=== PATIENT | female | born 1955 | race Caucasian/White ===

== ENCOUNTER 2018-11-30 04:23 | Inpatient (IN) ==
--- OUTSIDE RECORDS SUMMARY | 2018-11-30 04:25 | External Medical Summary | Continuity of Care Document ---
:1955 Author Name Adis Ramirez Address Unavailable Unavailable , Care Team Providers Name Role Phone Unavailable Unavailable Unavailable SERRA Unavailable Unavailable Unavailable Unavailable Unavailable Problems Rosacea (695.3) (L71.9) Actinic keratosis (702.0) (L57.0) Nasal congestion (478.19) (R09.81) Chronic rhinitis (472.0) (J31.0) Female pelvic pain (625.9) (R10.2) Encounter for routine gynecological exam ination with Papanicolaou smear of cervix (V72.31) (Z01.419) Allergies and Adverse Reactions Biaxin TABS (Allergy) Medications Levothyroxine Sodium TABS , M.D. Refills: 0 Omeprazole 20 MG Oral Capsule Delayed Release; TAKE 1 CAPSUL E DAILY. , M.D. Start: 13-Sep-2014 Refills: 0 metroNIDAZOLE 0.75 % External Gel; APPLY AND RUB IN A THIN FILM TO AFFECTED AREAS ONCE DAILY , M.D. Start: 13-Sep-2014 Quantity: 1 45 GM Tube Refills: 2 Procedures History of Hysteroscopy With Endometrial Ablation Status: Completed History of Tubal Ligation Status: Comple neena Immunizations Immunizations not documented Social History - Smoking Status Never smoker Plan of Treatment Planned Observations Planned Goals not documented Results No Known Results Results not documented
--- NOTE | 2018-11-30 04:41 | Emergency Department Note ---
History of Present Illness General Chief complaint: GI Assessment Stated complaint: BLOODY STOOL History of Present Illness This 63-year-old presents to the ER complaining of rectal bleeding Location: Rectum Quality: Bleeding Severity: Moderate Duration: 3 days Timing: Started 3 days ago Context: Symptoms got worse and patient came back Modifying factors: better with nothing; worse with movement Patient was seen here 3 days ago and told she had hemorrhoids. Patient states every time she tries to go the bathroom she has bright red blood that comes out that has gotten progressively worse. Her stool is brown in nature. She is had some lower abdominal discomfort. Patient states this morning she woke up to go the bathroom and had copious amount of bright red blood. No clots. Patient states she feels slightly weak. She is a history of diverticulitis. No history of GI bleeding. Dr. Zelaya is her GI doctor. No recent colonoscopy. Patient denies chest pain, dyspnea, fevers, syncope, rectal pain. She is not on blood thinners. Home Medications Home Medications Medication Instructions Recorded Confirmed Type levothyroxine 50 mg PO DAILY 07/20/18 11/30/18 History omeprazole 20 mg PO DAILY 07/20/18 11/30/18 History fluticasone propionate 2 spry INTRANASAL DAILY PRN 11/27/18 11/30/18 History multivitamin 1 tab PO DAILY 11/27/18 11/30/18 History omega 2-zju-hov-fish oil [Fish Oil] 1 cap PO DAILY 11/27/18 11/30/18 History vitamin E 400 units PO DAILY 11/27/18 11/30/18 History Allergies Allergy/AdvReac Type Severity Reaction Status Date / Time clarithromycin Allergy Intermediate HIVES Verified 11/30/18 05:10 adhesive Allergy Mild ITCHING, Verified 11/30/18 05:10 REDNESS bupropion Allergy Mild ANXIETY Verified 11/30/18 05:10 penciclovir Allergy Mild COLD SORES Verified 11/30/18 05:10 venlafaxine Allergy Unknown UNKNOWN Verified 11/30/18 05:10 Past Med/Surg History Medical History Diverticulitis Social History Preferred Language: Serbian Feels Safe at Home: Yes Smoking Status: Never smoker Review of Systems All systems reviewed & are unremarkable except as noted in HPI & below Physical Exam Vital Signs Vital Signs - 24 hr 11/30/18 04:26 11/30/18 04:44 Temperature 36.6 C Temperature Source Oral Sepsis Recent Fever Within 48 Hours No Sepsis Action Taken by Nursing No Action Required Pulse Rate 77 Respiratory Rate 20 Respiratory Effort / Characteristics Non-Labored Spontaneous Respiratory Depth Normal Blood Pressure 118/76 Blood Pressure Mean 90 Blood Pressure Position Sitting Pulse Oximetry 100 100 Oxygen Delivery Method Room Air Room Air VITALS: Vitals are noted on the nurse's note and reviewed by myself. Vital signs stable. GENERAL: Pleasant female, in no acute distress, nondiaphoretic, well-developed well-nourished. SKIN: The skin was without rashes, erythema, edema, or bruising. There is no tenting of the skin. Capillary reflex less than 2 seconds. HEAD: Normocephalic atraumatic. EARS: External auditory canals clear EYES: Pupils equal round and reactive to light and accommodation. Conjunctivae without injection, sclerae without icterus. Extraocular movements intact. NOSE: Patent, turbinates without inflammation or discharge. MOUTH: Mucous membranes moist. Pharynx without erythema or exudate. Uvula midline. Airway patent. Tongue does not deviate. NECK: Supple without nuchal rigidity. No lymphadenopathy. No thyromegaly. Cervical spine is nontender. No JVD. HEART: Regular rate and rhythm without murmurs gallops or rubs. LUNGS: Clear to auscultation bilaterally without wheezes, rales or rhonchi. No retractions or accessory muscle use. ABDOMEN: Positive bowel sounds x 4. Normal tympanic percussion. Soft, tender lower abdomen, without masses or organomegaly. Veliz sign negative. No guarding or rebound tenderness. No CVA tenderness Rectal exam: Nonthrombosed hemorrhoids at 3 and 9:00, bright red blood in the vault, engineering test specialist present. No fissures or tears. MUSCULOSKELETAL: No muscle atrophy, erythema, or edema noted. NEURO: Patient was alert and oriented to person place and time. Normal sensation to light and sharp touch. No focal neurological deficits. Course Administered Medications Ioversol (Optiray 320 100ml) 100 ml IV ONCE PRN PRN Reason: Interaction Checking Stop: 12/04/18 05:17 Last Admin: 11/30/18 05:19 Dose: 94 ml Documented by: [id number] Medical Decision Making Medical Records Attestation: I reviewed the patient's medical records. Home Medications Current Medication List: was personally reviewed by me Laboratory Data Attestation: I reviewed the patient's lab results. Result diagrams: 11/30/18 04:47 11/30/18 04:47 Lab Results 11/30/18 11/30/18 11/30/18 Range/Units 04:47 04:47 04:47 WBC 6.44 (4.8-10.8) K/uL RBC 3.05 L (4.2-5.4) M/uL Hgb 9.9 L (12.0-16.0) g/dL POC Hgb (12.0-16.0) g/dl Hct 28.3 L (37-47) % POC Hct (37-47) % MCV 92.8 (80-100) fL MCH 32.5 (25-34) pg MCHC 35.0 (32-36) g/dL RDW Std Deviation 45.6 (36.4-46.3) fL RDW Coeff of Michelle 13.5 (11.5-14.5) % Plt Count 196 (130-400) K/uL MPV 9.9 (7.4-10.4) fL PT 9.8 (9.0-12.0) Seconds INR 1.0 (0.9-1.1) APTT 22.5 (21.0-31.0) Seconds PTT Ratio 0.8 POC Sodium (135-144) mEq/L Sodium 138 (136-145) mmol/L POC Potassium (3.3-5.0) mEq/L Potassium 4.3 (3.5-5.1) mmol/L POC Chloride (101-112) mEq/L Chloride 106 (98-107) mmol/L Carbon Dioxide 26 (21-32) mmol/L POC Total CO2 (24-31) mEq/l Anion Gap 7.0 (3-11) POC Anion Gap (16-25) mmol/L POC BUN (7-18) mg/dl BUN 21 H (7-18) mg/dl Creatinine 0.63 (0.6-1.2) mg/dl POC Creatinine (0.6-1.3) mg/dl Est Cr Clr Drug Dosing 91.7 ml/min Est GFR ( Amer) 109.9 Est GFR (Non-Af Amer) 94.8 BUN/Creatinine Ratio 33.9 H (10-20) Glucose 100 H (70-99) mg/dl POC Glucose (other) (70-99) mg/dl Calcium 8.4 L (8.5-10.1) mg/dl POC Ioniz Calcium Hayley (1.12-1.32) mmol/l Total Bilirubin 0.4 (0.2-1) mg/dl AST 21 (15-37) U/L ALT 33 (12-78) U/L Alkaline Phosphatase 50 (45-117) U/L Total Protein 6.5 (6.4-8.2) gm/dl Albumin 3.4 (3.4-5.0) gm/dl Globulin 3.1 (2.5-4.0) gm/dl Albumin/Globulin Ratio 1.1 (0.9-2) 11/30/18 Range/Units 04:52 WBC (4.8-10.8) K/uL RBC (4.2-5.4) M/uL Hgb (12.0-16.0) g/dL POC Hgb 9.5 L (12.0-16.0) g/dl Hct (37-47) % POC Hct 28 L (37-47) % MCV (80-100) fL MCH (25-34) pg MCHC (32-36) g/dL RDW Std Deviation (36.4-46.3) fL RDW Coeff of Michelle (11.5-14.5) % Plt Count (130-400) K/uL MPV (7.4-10.4) fL PT (9.0-12.0) Seconds INR (0.9-1.1) APTT (21.0-31.0) Seconds PTT Ratio POC Sodium 137 (135-144) mEq/L Sodium (136-145) mmol/L POC Potassium 4.2 (3.3-5.0) mEq/L Potassium (3.5-5.1) mmol/L POC Chloride 100 L (101-112) mEq/L Chloride (98-107) mmol/L Carbon Dioxide (21-32) mmol/L POC Total CO2 25 (24-31) mEq/l Anion Gap (3-11) POC Anion Gap 17.0 (16-25) mmol/L POC BUN 20 H (7-18) mg/dl BUN (7-18) mg/dl Creatinine (0.6-1.2) mg/dl POC Creatinine 0.6 (0.6-1.3) mg/dl Est Cr Clr Drug Dosing ml/min Est GFR ( Amer) Est GFR (Non-Af Amer) BUN/Creatinine Ratio (10-20) Glucose (70-99) mg/dl POC Glucose (other) 103 H (70-99) mg/dl Calcium (8.5-10.1) mg/dl POC Ioniz Calcium Hayley 1.13 (1.12-1.32) mmol/l Total Bilirubin (0.2-1) mg/dl AST (15-37) U/L ALT (12-78) U/L Alkaline Phosphatase (45-117) U/L Total Protein (6.4-8.2) gm/dl Albumin (3.4-5.0) gm/dl Globulin (2.5-4.0) gm/dl Albumin/Globulin Ratio (0.9-2) Imaging Data Attestation: I personally reviewed and interpreted this imaging study as follows: MDM Narrative Prior records/ancillary studies reviewed. Triage Nursing notes reviewed. Additional history obtained from the family. The patient's history was concerning for possible gastrointestinal bleeding. Differential diagnosis: Etiologies such as diverticulosis, AVM, coagulopathy, colitis, inflammatory bowel disease, malignancy, Cuca-Lainez tear, esophagitis, peptic ulcer disease, variceal bleed, gastritis, epistaxis, fissure, hemorrhoids, as well as others were entertained. Physical exam: As above. The patients vital signs were stable. ER treatment provided: Patient was observed On reassessment the patient felt better. Diagnostics interpreted by me: EKG: Normal sinus, normal intervals, poor baseline, no acute ST-T changes, rate of 67. Impression normal sinus rhythm interpreted by myself I think arrhythmia is unlikely. EKG shows normal sinus rhythm with no interval abnormalities such as QT prolongation or WPW. There are no findings to suggest Brugada syndrome. Cardiac monitoring in the emergency department reveals no tachycardic or bradycardic dysrhythmia. Hypertrophic cardiomyopathy was considered but there are no clear historical elements pointing toward this. EKG is not suggestive. The QRS voltage is not extremely large and there are no suggestive Q waves. The labs revealed slightly worsening anemia No leukocytosis Type and screen ordered and patient was consented to blood transfusion if needed. Paper work was placed on the chart Imaging studies: CT ABDOMEN & PELVIS With Contrast: Colonic diverticulosis without inflammation, no bowel obstruction or wall thickening Radiologist: Chuck Martinez MD Consultation: A consultation was placed with the [facility] hospitalist. The case was discussed and diagnostics were reviewed. The patient was evaluated in the ER for further treatment. This appears to be consistent with rectal bleeding. Patient's H&H has dropped slightly. She is symptomatic. Medicine was consulted. She is agreeable treatment plan of admission. No leukocytosis. No acute findings on CAT scan. Type and screen is ordered and patient was consented to transfusion if needed. By the evaluation outlined above emergent etiologies such as esophageal perforation, peptic ulcer disease, variceal bleed, coagulopathy, gastritis, epistaxis, as well as others were deemed relatively unlikely. The pt informed about the findings as listed above. All questions were answered and pleased with the treatment. Case reviewed with my attending The chart was completed utilizing [employer] Speech voice recognition software. Grammatical errors, random word insertions, pronoun errors, and incomplete sentences are an occassional consequence of this system due to software limitations, ambient noise, and hardware issues. Any formal questions or concerns about the content, text, or information contained within the body of this dictation should be directly addressed to the physician assistant store manager trainee for clarification. Impression & Plan Bright red rectal bleeding, Anemia Discharge Plan Visit Data Chief Complaint: GI Assessment Stated Complaint: BLOODY STOOL ED Provider: Parisa Tucker ED Midlevel Provider: Katherine Victoria Discharge Problem: Bright red rectal bleeding, Anemia Patient Disposition: Being Evaluated by Hospitalist Condition: Fair Forms Stand Alone Forms: My [facility] Prescriptions Prescriptions: No Action multivitamin Tablet 1 tab PO DAILY RF: 0 vitamin E 200 unit Capsule 400 units PO DAILY RF: 0 fluticasone propionate 50 mcg/actuation spray,suspension 2 spry intranasal DAILY PRN (Reason: Allergy Symptoms) RF: 0 omega 7-tul-dre-fish oil [Fish Oil] 1,000 mg (120 mg-180 mg) Capsule 1 cap PO DAILY RF: 0 levothyroxine 50 mcg tablet 50 mg PO DAILY RF: 0 omeprazole 20 mg Capsule,Delayed Release(Dr/Ec) 20 mg PO DAILY RF: 0 Referrals Referrals: Farhana Crane CRNP [Primary Care Provider] -
[2018-11-30 05:01] LABS: Hematocrit (blood only) 28.3 % (37-47); Hemoglobin 9.9 g/dL (12.0-16.0); Mean Corpuscular Volume 92.8 fL (80-100); Mean Platelet Volume 9.9 fL (7.4-10.4); Platelet Count 196 K/uL (130-400); RDW Coefficient of Variation 13.5 % (11.5-14.5); RDW Standard Deviation 45.6 fL (36.4-46.3); Red Blood Count 3.05 M/uL (4.2-5.4); White Blood Count 6.44 K/uL (4.8-10.8)
[2018-11-30 05:06] LABS: iSTAT Creatinine 0.6 mg/dl (0.6-1.3); iSTAT Hemoglobin 9.5 g/dl (12.0-16.0); iSTAT Ionized Calcium 1.13 mmol/l (1.12-1.32); iSTAT Potassium 4.2 mEq/L (3.3-5.0)
[2018-11-30 05:16] LABS: Albumin Level 3.4 gm/dl (3.4-5.0); BUN Creatinine Ratio 33.9 (10-20); Calcium 8.4 mg/dl (8.5-10.1); Creatinine Clr Calc Pharmacy 91.7 ml/min; Est GFR (African American) 109.9; Est GFR (Non-African American) 94.8; Partial Thromboplastin Ratio 0.8; Partial Thromboplastin Time 22.5 Seconds (21.0-31.0); Potassium 4.3 mmol/L (3.5-5.1); Prothrombin Time 9.8 Seconds (9.0-12.0)
[2018-11-30 05:18] LABS: Albumin Globulin Ratio 1.1 (0.9-2); Bilirubin,Total 0.4 mg/dl (0.2-1); Globulin 3.1 gm/dl (2.5-4.0); Total Protein 6.5 gm/dl (6.4-8.2)
[2018-11-30] MEDS ORDERED: IOVERSOL 100ml IV PRN (05:18)
[2018-11-30 06:10] LABS: Basophils # (auto) 0.02 K/uL (0-0.2); Basophils % (auto) 0.3 %; Eosinophils # (auto) 0.12 K/uL (0-0.5); Eosinophils % (auto) 1.9 %; Immature Granulocytes # (auto) 0.01 K/uL (0.00-0.02); Immature Granulocytes % (auto) 0.2 %; Lymphocytes # (auto) 1.39 K/uL (1.2-3.4); Lymphocytes % (auto) 21.6 %; Monocytes # (auto) 0.41 K/uL (0.11-0.59); Monocytes % (auto) 6.4 %; Neutrophils # (auto) 4.49 K/uL (1.4-6.5); Neutrophils % (auto) 69.6 %
--- NOTE | 2018-11-30 06:44 | CT Scan Report ---
CT abd pelvis IV con only CT DOSE: 358.12 mGy.cm HISTORY: Pain. Rectal bleeding. lower abd pain, rectal bleed TECHNIQUE: Multiaxial CT images of the abdomen and pelvis were performed following the use of intrave nous contrast. A dose lowering technique was utilized adhering to the principles of ALARA. COMPARISON STUDY: 09/24/2017 FINDINGS: Lung bases are clear. Liver spleen and pancreas are unremarkable. Kidneys enhance uniformly . No evidence for hydronephrosis. Slight general colonic wall thickening. No significant abscess or collection. Mild chronic sigmoid di verticulosis. IMPRESSION: 1. Potential minimal nonobstructive colitis. 2. Mild chronic sigmoid diverticulosis. 3. No evidence for abscess collection or obstruction. The above report was generated using voice recognition software. It may contain grammatical, syntax or spelling errors. Electronically signed by: José Collado M.D. 11/30/2018 6:42 AM
--- NOTE | 2018-11-30 07:52 | History & Physical Report ---
Date of Service November 30, 2018 Assessment & Plan (1) Bright red rectal bleeding: Concern for severe hemorrhoid vs. diverticular bleed given the hx of bright red blood and noted dark red stool in the ED. Had episode of syncope in the ED when attempting orthostatics. BP down to 85/55 at that time. - Close vital sign monitoring - Trend hgb - GI consult - Sees Dr. Zelaya as outpatient (2) Hypothyroidism: No signs/symptoms of hypo-/hyperthyroidism. - Continue home Synthroid 50 mcg (3) DVT prophylaxis: SCDs & early ambulation - Heparin contraindicated in GI bleed History of Present Illness Primary Care Provider: OMERO Macedo 63yo F w/ hx of hypothyroidism who presents for lower GI bleeding. Patient reports that on Friday she had an episode where she felt lightheaded and dizzy. Shortly after, she had a large BM with bright red blood. She went to the ED, and they felt it was a significant hemorrhoid bleed and sent her home. She felt somewhat weak, but otherwise well over the weekend, then had another episode of lightheadedness, weakness, and another episode of BRBPR on Friday morning and presented to the ED. She has a history of diverticulitis with the most recent episode in 06/2018. Follow with Dr. Zelaya. Allergies Allergy/AdvReac Type Severity Reaction Status Date / Time clarithromycin Allergy Intermediate HIVES Verified 11/30/18 05:10 adhesive Allergy Mild ITCHING, Verified 11/30/18 05:10 REDNESS bupropion Allergy Mild ANXIETY Verified 11/30/18 05:10 penciclovir Allergy Mild COLD SORES Verified 11/30/18 05:10 venlafaxine Allergy Unknown UNKNOWN Verified 11/30/18 05:10 Home Medications Home Medications Medication Instructions Recorded Confirmed Type levothyroxine 50 mg PO DAILY 07/20/18 11/30/18 History omeprazole 20 mg PO DAILY 07/20/18 11/30/18 History fluticasone propionate 2 spry INTRANASAL DAILY PRN 11/27/18 11/30/18 History multivitamin 1 tab PO DAILY 11/27/18 11/30/18 History omega 2-hdm-bop-fish oil [Fish Oil] 1 cap PO DAILY 11/27/18 11/30/18 History vitamin E 400 units PO DAILY 11/27/18 11/30/18 History Past Med/Surg History Medical History Hypothyroidism Diverticulitis Surgical History H/O colonoscopy Family History Father Hypertension Social History Preferred Language: Greek Communication Ability: Effective Cert Occupational Therapy Asst Required: No Beliefs That Will Affect Care: None Current Living Situation: Spouse Other Information That Helps Us Care for You: No Feels Safe at Home: Yes Safety Concerns: Feels Safe At This Time Smoking Status: Never smoker Do You Dip or Chew Tobacco: No Second Hand Exposure: No Tobacco Cessation Education Requested by Patient: No Hx Alcohol Use: No Hx Substance Use: No Review of Systems Constitutional: no fever, no chills and no sweats Eyes: no diplopia Ear, Nose, Mouth, Throat: no ear trauma, no nasal discharge and no dental pain Respiratory: no cough, no chest congestion and no dyspnea Cardiovascular: no chest pain, no dyspnea on exertion, no palpitations and no syncope Gastrointestinal: + blood in stools; no abdominal pain, no belching, no constipation, no diarrhea/loose stools and no melena Musculoskeletal: no back pain, no joint pain and no muscle weakness Integumentary: no rash, no skin ulcer and no erythema Neurologic: no generalized weakness, no loss of sensation, no numbness and no paresthesia Psychiatric: no depression and no anxiety Endocrine: no fatigue, no polydipsia and no polyphagia Physical Exam Constitutional: WD/WN, vitals as above Eyes: EOM intact bilaterally; no conjunctival abnormality ENMT: external ear and nose normal, oropharynx normal Neck: trachea midline, no thyromegaly normal visual inspection Respiratory: normal respiratory effort, lungs clear to auscultation no respiratory distress Cardiovascular: RRR, no murmur, no edema Gastrointestinal (Abdomen): Inspection/Auscultation: abdomen normal to inspection; abdomen not distended Musculoskeletal: no cyanosis or clubbing, extremities motor strength 5/5 Skin: no rashes, warm and dry Neurologic: moves all extremities and awake Psychiatric: Orientation: alert, oriented to person and cooperative Results & Data Vital Signs (Past 12 Hours) Vital Signs Temp Pulse Pulse Resp BP BP Pulse Ox 11/30/18 07:21 72 20 119/59 L 98 11/30/18 06:03 70 18 120/63 100 11/30/18 04:44 100 11/30/18 04:26 36.6 C 77 20 118/76 100
[2018-11-30] MEDS ORDERED: FLUTICASONE PROPIONATE NA SPR 16 GM BTL PRN (09:40)
[2018-11-30] MEDS ORDERED: ACETAMINOPHEN 325 MG TAB PO PRN (09:40)
[2018-11-30] MEDS ORDERED: ONDANSETRON INJ 2 MG/ML 2 ML VIAL IV PRN (09:40)
[2018-11-30] MEDS: LEVOTHYROXINE SODIUM 50 MCG TABLET PO SCH (11:09)
[2018-11-30] MEDS: PANTOprazole 40 MG TAB PO SCH (11:10)
[2018-11-30] MEDS: MULTIVITAMIN TAB PO SCH (11:10)
[2018-11-30] MEDS: TOCOPHERYL, DL-ALPHA 100 UNITS CAP PO SCH (12:13)
--- NOTE | 2018-11-30 13:02 | Consultation Report ---
DATE OF CONSULTATION: 11/30/2018 REASON FOR EVALUATION: Rectal bleeding. HISTORY OF PRESENT ILLNESS: The patient is a 63-year-old with acute onset painless bright red rectal bleeding. Three days ago, came to the Emergency Room and was evaluated. Her blood count was around 11 at that time and the bleeding appeared to have stopped. She was not taking any aspirin or nonsteroidals or blood thinners. It was felt that her bleeding may have been from a hemorrhoid and she was released only to come back yesterday with a recurrent episode of bright red rectal bleeding. She has had about 3 episodes since, all of which have been bright red or dark red. No visible clots and no pain associated with it. She has been now tolerating clear liquids and been rehydrated. Her hemoglobin now is 9.9. She does not feel any discomfort, pain and nausea. She was fairly weak when she was actively bleeding. PAST MEDICAL HISTORY: Remarkable for thyroid disease with hypothyroidism. She has chondromalacia, coronary artery calcification, diverticulosis. Her last colonoscopy was 11/04/2013, just showed diverticulosis and melanosis. MEDICATIONS: Levothyroxine, omeprazole, fluticasone, multiple vitamin, fish oil and vitamin E. ALLERGIES: CLARITHROMYCIN, ADHESIVES, BUPROPION, PENCICLOVIR AND VENLAFAXINE. FAMILY HISTORY: Positive for coronary artery disease and hypertension in her father. SOCIAL HISTORY: The patient is . 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 Does not smoke, does not use any alcohol. REVIEW OF SYSTEMS: Negative for 12 systems. PHYSICAL EXAMINATION: GENERAL: The patient appears awake, alert, in no acute distress. VITAL SIGNS: Blood pressure is 120/60, pulse 72. ABDOMEN: Soft. There are no masses, tenderness or hepatosplenomegaly. EXTREMITIES: Showed no clubbing, cyanosis or edema. NEUROLOGIC: Grossly normal. IMPRESSION AND PLAN: The patient has a large volume painless bright red bleeding, probably diverticular in origin. There were no lesions on her CAT scan or most recent colonoscopy to explain another source. These usually stop on their own and I would recommend continued bowel rest with clear liquids and frequent monitoring of her blood count. If she has recurrent bleeding that fails to stop or respond to blood replacement, then we may need to refer her for Interventional Radiology, but this is not very likely. I will continue to follow the patient during her hospital stay.
[2018-12-01 05:54] LABS: Hematocrit (blood only) 22.5 % (37-47); Hemoglobin 7.8 g/dL (12.0-16.0); Mean Corpuscular Hgb Conc 34.7 g/dL (32-36); Mean Corpuscular Volume 94.1 fL (80-100); Mean Platelet Volume 9.3 fL (7.4-10.4); Platelet Count 158 K/uL (130-400); RDW Coefficient of Variation 13.6 % (11.5-14.5); Red Blood Count 2.39 M/uL (4.2-5.4); White Blood Count 3.76 K/uL (4.8-10.8)
[2018-12-01 06:43] LABS: BUN Creatinine Ratio 21.4 (10-20); Calcium 7.8 mg/dl (8.5-10.1); Est GFR (African American) 115.6; Est GFR (Non-African American) 99.7; Ferritin 18.5 ng/ml (8-388); Magnesium 2.1 mg/dl (1.8-2.4)
[2018-12-01] MEDS: LEVOTHYROXINE SODIUM 50 MCG TABLET PO SCH (07:35)
[2018-12-01] MEDS: TOCOPHERYL, DL-ALPHA 100 UNITS CAP PO SCH (07:35)
[2018-12-01] MEDS: MULTIVITAMIN TAB PO SCH (07:36)
[2018-12-01] MEDS: PANTOprazole 40 MG TAB PO SCH (07:36)
[2018-12-01] MEDS ORDERED: IRON SUCROSE 300 MG in SODIUM CHLORIDE 0.9% 250 ML IV SCH (07:45)
[2018-12-01] MEDS ORDERED: CALCIUM GLUCONATE 10% 2,000 MG in SODIUM CHLORIDE 0.9% 50 ML IV ONE (08:30)
[2018-12-01 12:21] VITALS: BP 108/59; O2SAT 100
[2018-12-01 15:54] VITALS: PULSE 68; TEMP 97.7
--- NOTE | 2018-12-01 16:14 | Discharge Summary ---
Date of Service December 01, 2018 Admission HPI Per Admitting Provider 63yo F w/ hx of hypothyroidism who presents for lower GI bleeding. Patient reports that on Friday she had an episode where she felt lightheaded and dizzy. Shortly after, she had a large BM with bright red blood. She went to the ED, and they felt it was a significant hemorrhoid bleed and sent her home. She felt somewhat weak, but otherwise well over the weekend, then had another episode of lightheadedness, weakness, and another episode of BRBPR on Friday morning and presented to the ED. She has a history of diverticulitis with the most recent episode in 06/2018. Follow with Dr. Zelaya. Principal Diagnosis Diverticular bleed Discharge Exam Constitutional WD/WN, vitals as above Eyes EOM intact bilaterally; no conjunctival abnormality ENMT external ear and nose normal, oropharynx normal Neck trachea midline, no thyromegaly normal visual inspection Respiratory normal respiratory effort, lungs clear to auscultation no respiratory distress Cardiovascular RRR, no murmur, no edema Gastrointestinal (Abdomen) Inspection/Auscultation: abdomen normal to inspection; abdomen not distended Musculoskeletal no cyanosis or clubbing, extremities motor strength 5/5 Skin no rashes, warm and dry Neurologic moves all extremities and awake Psychiatric Orientation: alert, oriented to person and cooperative Discharge Data Allergies Allergy/AdvReac Type Severity Reaction Status Date / Time clarithromycin Allergy Intermediate HIVES Verified 11/30/18 05:10 adhesive Allergy Mild ITCHING, Verified 11/30/18 05:10 REDNESS bupropion Allergy Mild ANXIETY Verified 11/30/18 05:10 penciclovir Allergy Mild COLD SORES Verified 11/30/18 05:10 venlafaxine Allergy Unknown UNKNOWN Verified 11/30/18 05:10 Consultations 11/30/18 05:54 ED Decision to Admit Stat 11/30/18 09:40 Consult Gastroenterology Routine Ordered Studies 11/30/18 04:37 CT abd pelvis IV con only Urgent Hospital Course (1) Bright red rectal bleeding: Likely diverticular bleed given the hx of bright red blood and noted dark red stool in the ED. Had episode of syncope in the ED when attempting orthostatics. BP down to 85/55 at that time. - Got 1 L IVF. - Hgb trended down to ~8 from baseline of -. - Seen by GI - Dr. Zelaya who recommended conservative management. - Given IV iron before discharge. Never needed any transfusion. Will follow up with Dr. Zelaya in the office. (2) Hypothyroidism: No signs/symptoms of hypo-/hyperthyroidism. - Continued home Synthroid 50 mcg (3) DVT prophylaxis: SCDs & early ambulation - Heparin contraindicated in GI bleed Total Time Total Time Spent Total Time Spent (In Minutes): 35 Total Time Includes: Examination of the Patient, Discharge Planning and Medication Reconciliation Discharge Plan Discharge Items Patient Disposition: Home - Self-Care Reason For Visit: GI BLEED Discharge Diagnosis: Lower GI bleed - Probably a diverticular bleed Condition: Good Discharge Goals: Decrease discomfort, Improve disease control and Improve function Activity: Resume your previous activity Non-emergency contact: Primary Care Provider and Information Systems Supervisor Call non-emergency contact if: your symptoms worsen, your pain is not controlled and your temperature is above 100.5 Follow-up/Referrals: Farhana Crane CRNP [Primary Care Provider] - 12/07/18 10:50 am (Please, follow up at OMERO Crane's office with her associate, Dr. Tejal Claros, on FridayDecember 07 at 10:50 am. *The office is located in [address] of [facility]. This is the big building next to this hospital. If you need to change this appointment, call their office at [phone].) Villa Zelaya [Physician] - (Please call Dr. Zelaya's office for a follow up in the next 1-2 weeks.) Diet: See below Diet Comment: Low residue, high iron diet Addtl Provider Instructions: Ms. Cook, You were admitted for bleeding from your colon (large intestine) that was likely coming from a diverticulum (outpouching in the colon). These usually resolve on their own as in your case. Please be aware that they can recur. If you have mor e bleeding, come back to the hospital immediately. Until you see Dr. Zelaya, please follow a low-residue diet that is also high in iron. Avoid skins from fruits and vegetables. Avoid whole grains and seeds, nuts, corn, and raw or dried fruits. For high iron content, eat red meat, spinach, and other items. Take an iron tablet every other day if it does not upset your stomach too much. Prescriptions: Continued multivitamin Tablet 1 tab PO DAILY RF: 0 vitamin E 200 unit Capsule 400 units PO DAILY RF: 0 fluticasone propionate 50 mcg/actuation spray,suspension 2 spry intranasal DAILY PRN (Reason: Allergy Symptoms) RF: 0 omega 0-plk-zok-fish oil [Fish Oil] 1,000 mg (120 mg-180 mg) Capsule 1 cap PO DAILY RF: 0 levothyroxine 50 mcg tablet 50 mg PO DAILY RF: 0 omeprazole 20 mg Capsule,Delayed Release(Dr/Ec) 20 mg PO DAILY RF: 0 Stand-Alone Forms: [facility] Discharge Orders: Discharge Order (Routine); Ordered 12/01/18 Ordered By: Kunal Alvarez Admission Data Admit Date/Time: 11/30/18 08:17 Attending Provider: Kunal Alvarez Admit Provider: Kunal Alvarez Primary Care Provider: Farhana Crane Other Providers: Michaela Espinal ; Villa Zelaya Service: Telemetry Other Interventions: Discharge Summary Assessment (RN) Last Done: 12/01/18 15:26 DC Date/Time DO NOT enter until pt leaves facility: 12/01/18 16:04
== END 2018-12-01 16:04 | disposition home or self-care (01) | DRG 379 ==
LOC: ED 04:23 → 2S 08:17

== ENCOUNTER 2023-02-18 05:49 | Observation (INO) ==
--- NOTE | 2023-01-20 15:43 | PAT Medication Instructions ---
Medication Instructions Date of Service January 20, 2023 Home Medications levothyroxine 50 mcg tablet 50 mcg PO QAM omeprazole 20 mg capsule,delayed release 20 mg PO QAM fluticasone propionate 50 mcg/actuation nasal spray,suspension 2 spry intranasal DAILY PRN omega 8-llf-lwh-fish oil 1,000 mg (120 mg-180 mg) capsule (Fish Oil) 1 cap PO QAM vitamin E 200 unit capsule 400 units PO QAM ascorbic acid (vitamin C) 1,000 mg tablet (Vitamin C) 1 g PO QAM psyllium husk 3.4 gram/5.4 gram oral powder (Metamucil) 2 tbsp PO QAM Headache And Allergy Relief 1 dose PO UD PRN Vitamin K2 And Vitamin D3 1 dose PO QAM coenzyme Q10 100 mg capsule (CoQ-10) 100 mg PO QAM STOP taking 2 weeks before surgery (or as soon as possible if surgery is within 2 weeks) omega 8-tzr-txh-fish oil 1,000 mg (120 mg-180 mg) capsule (Fish Oil) 1 cap PO QAM vitamin E 200 unit capsule 400 units PO QAM Headache And Allergy Relief 1 dose PO UD PRN Vitamin K2 And Vitamin D3 1 dose PO QAM coenzyme Q10 100 mg capsule (CoQ-10) 100 mg PO QAM DO NOT take the morning of surgery ascorbic acid (vitamin C) 1,000 mg tablet (Vitamin C) 1 g PO QAM psyllium husk 3.4 gram/5.4 gram oral powder (Metamucil) 2 tbsp PO QAM Take morning of surgery With a small sip of water, OTHERWISE NOTHING TO EAT OR DRINK AFTER MIDNIGHT: levothyroxine 50 mcg tablet 50 mcg PO QAM omeprazole 20 mg capsule,delayed release 20 mg PO QAM fluticasone propionate 50 mcg/actuation nasal spray,suspension 2 spry intranasal DAILY PRN(if needed) Other Notes If you have any questions please call us at [phone] or [phone] or [phone] or [phone]
--- NOTE | 2023-01-28 11:49 | Anesthesiology Consultation ---
Date of Service January 28, 2023 Assessment & Plan (1) Encounter for pre-operative examination: - Outpatient joint assessment: Pt currently scheduled for inpatient pathway. If surgeon requests review for outpatient joint pathway, patient is an acceptable candidate for outpatient joint program from anesthesia standpoint pending surgeon's office assessment that patient is motivated, has good support and completes Same Day Joint Program preop requirements. - COVID screening: Per assessment on 01/28: No known COVID-19 positive contacts or current COVID-19 related symptoms. Travel screen negative. Patient vaccinated. At surgeon discretion if preop Covid testing being done. - Patient acceptable risk for surgery pending surgeon-ordered PCP preop evaluation (Ekaterina JAMIL, appt done 01/27). Chart Review Chart Review: Patient seen in Pre Admission Testing Teaching & Discussion Pre-Anesthesia Teaching/Discussion Notes: Instructed NPO after midnight before surgery,except medications with 15 cc of water. Medication instructions provided according to the PAT guidelines. History Surgery Operation Date: 02/18/23 10:20 Proposed Procedures p Right Total Knee Arthroplasty - Edgar Becky Rivera MD Height/Weight Height: 5 ft 5 in Weight: 88.7 kg Allergies Allergy/AdvReac Type Severity Reaction Status Date / Time adhesive Allergy Unknown Itching, Verified 01/23/23 10:06 redness, swelling clarithromycin Allergy Unknown Hives Verified 01/23/23 10:06 latex Allergy Unknown Rash Verified 01/23/23 10:06 ("with latex gloves only") penciclovir Allergy Unknown Cold sores Verified 01/23/23 10:06 venlafaxine Allergy Unknown Unknown Verified 01/23/23 10:06 bupropion AdvReac Unknown Anxiety Verified 01/23/23 10:06 montelukast AdvReac Unknown Irritabilit Verified 01/23/23 10:06 y Medications Home Medications Medication Instructions Recorded Confirmed Last Taken levothyroxine 50 mcg tablet 50 mcg PO QAM 07/20/18 01/17/23 03/31/22 omeprazole 20 mg capsule,delayed 20 mg PO QAM 07/20/18 01/17/23 03/31/22 release fluticasone propionate 50 2 spry intranasal DAILY PRN 11/27/18 01/17/23 03/30/22 mcg/actuation nasal Allergy Symptoms spray,suspension omega 8-vsi-uem-fish oil 1,000 mg 1 cap PO QAM 11/27/18 01/17/23 03/31/22 (120 mg-180 mg) capsule (Fish Oil) vitamin E 200 unit capsule 400 units PO QAM 11/27/18 01/17/23 03/31/22 ascorbic acid (vitamin C) 1,000 mg 1 g PO QAM 03/05/22 01/17/23 03/31/22 tablet (Vitamin C) psyllium husk 3.4 gram/5.4 gram 2 tbsp PO QAM 03/05/22 01/17/23 03/31/22 oral powder (Metamucil) Headache And Allergy Relief 1 dose PO UD PRN ALLERGIES 01/17/23 01/17/23 Unknown Vitamin K2 And Vitamin D3 1 dose PO QAM 01/17/23 01/17/23 Unknown coenzyme Q10 100 mg capsule 100 mg PO QAM 01/17/23 01/17/23 Unknown (CoQ-10) Past Medical History Medical History Acid reflux Degenerative disc disease Diverticulitis Hx Hiatal hernia History of GI diverticular bleed 3 years ago Hypothyroidism Osteoarthritis Rosacea Exercise / Class Metabolic Activity II 4-5 Yardwork/Stairs/Walk up hill (one FS (no CP, no SOB)) Past Family History Family History Father Hypertension Brother Allergic rhinitis Mother Allergic rhinitis Other Family history of diabetes mellitus in father Heart disease No family history of adverse response to anesthesia No family history of bleeding disorder Stroke Past Surgical History Surgical History H/O colonoscopy History of endometrial ablation HSC, Endo ablation History of endoscopy History of right knee surgery Morales cyst removed History of tooth extraction Nausea and vomiting after administration of anesthetic agent With tooth extraction + cataracts surgery S/P cataract extraction R/L Status post tubal ligation Past Anesthesia History No Hx of Anesthesia Complications and No Family Hx of Anesthesia Complications History of PONV History of PONV and Hx of Motion Sickness Social History Smoking Status: Never smoker Do You Dip or Chew Tobacco: No Hx Alcohol Use: No Hx Substance Use: No substance use type: does not use Review of Systems Patient denies chest pain, shortness of breath, dyspnea on exertion, fever, chills, cough, wheezing, palpitations. Physical Exam Vital Signs VITALS BP 125/80 P 59 TEMP 98.3 SP02 95%RA RESP 16 PHYSICAL Full cervical extension range of motion. Full TMJ range of motion. TMD 3 finger breaths Mallampati Score 1 Dentition: full upper dentures Lungs: clear throughout to auscultation Cardiac: regular rate and rhythm, no murmurs noted Spine: normal Carotid arteries: negative bruit Extremities: no LE edema Lab Results Anesthesia Preop Results Results Anesthesia Widget: WBC 6.00 K/ul (4.8-10.8) 01/28/23 Hgb 13.1 g/dl (12.0-16.0) 01/28/23 Hct 37.0 % (37.0-47.0) 01/28/23 Plt 188 K/uL (130-400) 01/28/23 Na 133 mmol/L (136-145) L 01/28/23 K 4.1 mmol/L (3.5-5.1) 01/28/23 Cl 102 mmol/L (98-107) 01/28/23 CO2 25 mmol/L (21-32) 01/28/23 BUN 11 mg/dl (6-23) 01/28/23 Creat 0.52 mg/dl (0.6-1.2) L 01/28/23 Glucose Level 98 mg/dl (70-99(Fasting)) 01/28/23 PT 10.3 Seconds (9.0-12.0) 01/28/23 PTT 27.1 Seconds (21.0-31.0) 01/28/23 INR 0.9 (0.9-1.1) 01/28/23 Urine Color Dark Yellow 01/28/23 Urine Appearance Clear (Clear) 01/28/23 Urine pH 7.0 (4.5-7.5) 01/28/23 Urine Specific Dud[place] 1.011 (1.000-1.030) 01/28/23 Urine Protein Negative (Negative) 01/28/23 Urine Glucose (UA) Negative (Negative) 01/28/23 Urine Ketones Negative (Negative) 01/28/23 Urine Blood Negative (Negative) 01/28/23 Urine Nitrite Negative (Negative) 01/28/23 Urine Bilirubin Negative (Negative) 01/28/23 Urine Urobilinogen Negative (Negative) 01/28/23 Urine Leukocyte Esterase Negative (Negative) 01/28/23 Blood Type A Negative 01/28/23 Antibody Screen NEGATIVE 01/28/23 Testing Electrocardiogram Date: 01/28/23 SB at 54[address]pm. St abnormality, possible digitalis effect. EKG forwarded to PCP for continuity of care. Chest X-Ray Date: 07/24/22 FINDINGS: No lines and tubes are seen. Calcified aortic knob is seen. The lungs are clear. No evidence of pleural effusion or pneumothorax. Degenerative changes are seen in the thoracic spine. IMPRESSION: No acute chest disease. Stress Test Date: 03/22/22 Type: exercise Negative exercise stress echo/ECG for ischemia 93% MPHR. 5.2 METS. EF 65%. Borderline mild LVH. COVID-19 Risk Screen Screening Information COVID-19 Screen Date: 01/28/23 Exposure 21 Days Family/Household +COVID Last 21 Days: No Exposure 10 Days Any COVID Exposure Last 10 Days: No Symptoms Last 10 Days Experienced COVID Sx Last 10 Days: No + COVID 0-90 Days COVID + in Last 0-90 Days: No
[2023-02-18] MEDS ORDERED: CeleBREX 200 MG CAP PO SCH (06:00)
[2023-02-18] MEDS ORDERED: TRANEXAMIC ACID 1,000 MG **IV Pre-op IV SCH (06:00)
[2023-02-18] MEDS ORDERED: LR 500ML BOLUS, THEN 15ML/HR IV SCH (06:00)
[2023-02-18] MEDS ORDERED: ROPIVACAINE 0.5% HCL/PF 150 MG, BUPIVACAINE 0.75% MPF 20 ML, EPINEPHrine 0.15 MG, Ketor... INFIL SCH (06:00)
[2023-02-18] MEDS ORDERED: Scopolamine 1 MG TDSY TD SCH (06:00)
[2023-02-18] MEDS ORDERED: LR 60ML/HR IV SCH (06:00)
[2023-02-18] MEDS ORDERED: ACETAMINOPHEN 500 MG TAB PO SCH (06:00)
[2023-02-18] MEDS ORDERED: ceFAZolin 2000MG 2,000 MG/15 ML SYR IV SCH (06:00)
[2023-02-18] MEDS ORDERED: TRANEXAMIC ACID 1,000 MG **IV Intra-op IV SCH (06:00)
[2023-02-18] MEDS ORDERED: ROPIVACAINE 0.5% 5 MG/ML 30 ML VIAL ONE (06:28)
[2023-02-18] MEDS ORDERED: BUPIVACAINE 0.5 % 5 MG/1 ML PF 10ML VIAL ONE (06:28)
--- NOTE | 2023-02-18 06:40 | History & Physical Bridge Note ---
Date of Service February 18, 2023 History & Physical Bridge Note I have examined the patient, reviewed the History & Physical and in the interval since the performance of the History & Physical I have noted the following changes of clinical significance: no changes noted
[2023-02-18] MEDS ORDERED: MIDAZOLAM HCL 1 MG/ML 2ML VIAL ONE ×2 (07:22→07:23)
[2023-02-18] MEDS ORDERED: LIDOCAINE 2% 2 ML VIAL/AMP(20MG/ML) INFIL ONE (07:26)
[2023-02-18] MEDS ORDERED: PROPOFOL IV EMULSION 10 MG/ML 20 ML VIAL IV ONE (07:26)
[2023-02-18] MEDS ORDERED: PROMETHAZINE HCL 12.5 MG in SODIUM CHLORIDE 0.9% 50 ML IV PRN (07:46)
[2023-02-18] MEDS ORDERED: fentaNYL citrate PF 100 MCG/2 ML VIAL IV PRN (07:46)
[2023-02-18] MEDS ORDERED: HYDROmorphone INJ 2 MG/ML SYR/VIAL IV PRN (07:46)
[2023-02-18] MEDS ORDERED: ATROPINE SULFATE 0.1 MG/ML 10ML SYR IV PRN (07:46)
[2023-02-18] MEDS ORDERED: ePHEDrine sulfate 50 MG/ML AMP IV PRN (07:46)
[2023-02-18] MEDS ORDERED: ONDANSETRON INJ 2 MG/ML 2 ML VIAL IV PRN ×2 (07:46→12:27)
[2023-02-18] MEDS ORDERED: ORTHO JOINT ANESTHETIC ONE (08:32)
--- NOTE | 2023-02-18 11:02 | Post Operative Brief Note ---
Immediate Post Op Note v1 Date of Surgery February 18, 2023 Pre & Post Diagnosis Operation Date: 02/18/23 08:05 Pre-Op Diagnosis: Right Knee Osteoarthritis Post-Op Diagnosis: Right Knee Osteoarthritis I identified the patient and participated in the time-out.: Yes Procedure Operation Date: 02/18/23 08:05 Actual Procedures p Right Total Knee Arthroplasty(Right) - Edgar Rivera MD Surgeon Edgar Rivera MD Production Sampler DEDE Cruz (No fellow avail) Estimated Blood Loss 100 Findings Consistent with Post-Op Diagnosis Fluids 1000 cc Specimens Right knee contents Anesthesia Type MAC Spinal Regional Complications none
--- NOTE | 2023-02-18 11:03 | Operative Report ---
Post Operative Report Pre & Post Diagnosis Operation Date: 02/18/23 08:05 Pre-Op Diagnosis: Right Knee Osteoarthritis Post-Op Diagnosis: Right Knee Osteoarthritis I identified the patient and participated in the time-out.: Yes Procedure Operation Date: 02/18/23 08:05 Actual Procedures p Right Total knee replacement, imageless computer assisted navigation(Right) - Edgar Rivera MD Surgeon Edgar Rivera MD Ultimate Hoops Scoreboard Operator DEDE Cruz (No fellow avail) Estimated Blood Loss 100 Findings See Below Examined Under Anesthesia: ROM -- There was 5 degrees to 125 degrees of flexion Ligamentous examination -- revealed stable Carmen, posterior drawer, varus and valgus stress at 5 and 30 degrees. Outerbridge Grade IV changes of all 3 compartments with large marginal/patellar/intracondylar osteophytes. Fluids 1000 cc Specimens Right knee contents Anesthesia Type MAC Spinal Regional Complications none Indications This is a 67-year-old female who has clinical and radiographic findings consistent with osteoarthritis of the a right knee. I recommended that a right total knee replacement be performed. The patient understands the risks of surgery, which include but not limited to: bleeding, infection, re-operation, damage to nerves and arteries, continued knee pain, knee stiffness, DVT, and . The patient understands all of these instructions and explanations, all of his questions have been satisfactorily addressed and the patient has elected to proceed. Informed consent was signed. Description of Procedure IMPLANTS: 1. Femur: Triathlon #4 Right PS. 2. Tibia: Triathlon #4 [place]. 3. Insert: Triathlon #4 x 19 mm PS X3 poly. 4. Patella: Triathlon A29 x 9 mm X3 poly. 5. Palacos cement. Shiva Fried PA-C is assisting with positioning, retracting, and closure due to fellow not available. Procedure: The patient was taken to the Operating Room and placed in the supine position after spinal and adductor canal nerve block was administered. My initials and a multidisciplinary time-out were used to identify the right leg as the correct operative limb. A tourniquet was placed high in the thigh. Prior to the incision, 2 grams of intravenous Ancef were given. The right leg was then prepped and draped in a standard sterile fashion. An Esmarch was used to exsanguinate the leg and the tourniquet was inflated to 250 mmHg. The planned mid-line 20 cm incision was created exposing the extensor mechanism. The medial parapatellar arthrotomy was made and the patella was everted. The patella was addressed first. It was prepared by reaming from 16 mm down to 12 mm. An A29 button was found to fit best. The peg holes were made in the standard fashion. The femur was addressed next and using computer assisted OrthoAlign with 3 degrees of flexion and 0 degrees of valgus, removing 10 mm in the standard fashion for the distal cut. The cut was made and the 4-in-1 cutting block for a size 4 femur was placed. These cuts and the cuts to place the box were made in the standard fashion. Our attention was then drawn to the tibia cut with using imageless computer assisted OrthoAlign, taking 2 mm from the medial low side. There was sufficient extension and flexion gap to fit a 16 mm spacer. A #4 Tibial baseplate fit well. A trial with a 16 mm spacer showed excellent stability in both flexion a nd extension, with good ligament balance, and thumbs free patellar tracking. Range of motion of 0-130 degrees. The tibial baseplate was prepped for the keel and stem. All components were removed. 90 ml of total knee cocktail were injected into the soft tissues and periosteum.All surfaces were copiously irrigated prior to placement of the components. The femoral component followed by Tibial baseplate were cemented in place and a 16mm trial placed. Next, the patellar button was placed using the same cement. Once the cement had cured, the range of motion was unchanged, it was loose in both flexion and extension. A 19mm trial was placed and the ROM and stability were excellent. The 19 mm X3 poly was placed. Again, the range of motion and stability were unchanged The extensor mechanism was closed with 1-0 Vicryl and 0 Stratafix with the knee bent approximately 60 degrees in a standard fashion. The peritenon and deep fascia was closed with 2-0 Vicryl. The subcutaneous layer was closed with 3-0 Vicryl. The skin was closed with sussy. The limb was cleaned and dried. Xeroform, 4x4 dressing was placed over top followed by ABDs, sterile Webril, and a foot to thigh Ángel bandage. The patient was then transferred to the Recovery Room in stable condition. The sponge and needle counts were correct. POST-OP INSTRUCTIONS: The patient will be WBAT. The patient will be admitted to the hospital. Labs will be obtained during the stay. DVT prophylaxis will included aspirin for 6 weeks, TEDs, and mechanical foot pumps. The dressing will be changed prior to their discharge or postop day #2 and covered with a Silverlon dressing, whichever comes first as long as the incision as dry. I attest to the content of the Intraoperative Record and any orders documented therein. Any exceptions are noted below.
--- NOTE | 2023-02-18 11:18 | Operative Report ---
Post Operative Report Pre & Post Diagnosis Operation Date: 02/18/23 08:05 Pre-Op Diagnosis: Right Knee Osteoarthritis Post-Op Diagnosis: Right Knee Osteoarthritis I identified the patient and participated in the time-out.: Yes Procedure Operation Date: 02/18/23 08:05 Actual Procedures p Right Total Knee Arthroplasty(Right) - Edgar Rivera MD Surgeon Dr Rivera Toeing Stockings DEDE Cruz (No fellow avail) Estimated Blood Loss 100 Findings Consistent with Post-Op Diagnosis Specimens none Description of Procedure Pt was taken to operating room, placed under spinal anesthesia with sedation. Pt was given 2g Ancef IV. Prepped and draped in sterile fashion. I was present during the entire case and assisted with positioning, instrumentation, closure and dressings. Please see Dr. Rivera's op report for further detail. Pt was awake and transferred to PACU in stable condition I attest to the content of the Intraoperative Record and any orders documented therein. Any exceptions are noted below.
--- NOTE | 2023-02-18 11:50 | Anesthesiology Progress Note ---
Date of Service February 18, 2023 Anesthesia Post Procedure Vital Signs Vital Signs: Temp Pulse Resp BP Pulse Ox O2 Del Method O2 Flow Rate 02/18/23 11:50 36.2 C L 58 L 16 133/75 100 Room Air 2 02/18/23 11:40 55 L 16 129/71 100 Room Air 2 02/18/23 11:30 60 17 130/62 98 Room Air 2 02/18/23 11:20 36.0 C L 60 17 95/52 L 98 Nasal Cannula 2 02/18/23 06:06 36.6 C 63 18 140/83 98 Room Air Transfer of Care Handoff Completed per policy Notes Mental Status: alert / awake / arousable and participated in evaluation Nausea / Vomiting: adequately controlled Pain: adequately controlled Airway Patency, RR, SpO2: stable & adequate BP & HR: stable & adequate Hydration State: stable & adequate Neuraxial Anesthesia: was administered and sensory block is resolving Anesthetic Complications: no major complications apparent and Pt Satisfied with anesthetic care
--- NOTE | 2023-02-18 12:07 | XRay Report ---
XR knee RT 1 or 2V routine HISTORY: 67 years-old Female Surgical Post Op right knee arthroplasty COMPARISON: 12/25/2022 TECHNIQUE: 2 views of the right knee FINDINGS: Total joint arthroplasty with patellar resurfacing. Anterior midline skin sussy are present along w ith expected postoperative soft tissue swelling with deep tissue air. No acute fracture, dislocation or unexpected opaque foreign body. IMPRESSION: Total joint arthroplasty with expected postoperative changes. ACT 112: Negative or not required by law. The above report was generated using voice recognition software. It may contain grammatical, syntax o r spelling errors. Electronically signed by: Alexander Gonzalez M.D. 02/18/2023 12:06 PM
[2023-02-18] MEDS ORDERED: MAGNESIUM HYDROXIDE SUSP 30 ML UDC PO PRN (12:27)
[2023-02-18] MEDS ORDERED: METOCLOPRAMIDE HCL INJ 5 MG/ML 2 ML VIAL IV PRN (12:27)
[2023-02-18] MEDS ORDERED: NALOXONE HCL 0.4 MG/1 ML VIAL/CARP IV PRN (12:27)
[2023-02-18] MEDS ORDERED: HYDROmorphone INJ 0.5 MG/0.5 ML SYR IV PRN (12:27)
[2023-02-18] MEDS ORDERED: bisacodyL 10 MG SUPP PR PRN (12:27)
[2023-02-18] MEDS: SODIUM CHLORIDE 0.9% 1000ML 1,000 ML IV SCH ×2 (12:30→22:43)
--- NOTE | 2023-02-18 14:48 | Orthopedic Progress Note ---
Date of Service February 18, 2023 Assessment & Plan (1) Primary osteoarthritis of right knee: Plan: POD #0 s/p Right TKA, doing as well as expected. Resume diet. WBAT with walker. OOB to chair. Continue pain control. Check labs tomorrow. DVT prophylaxis: TEDs 3 weeks, foot pumps while in hospital, ASA 81 mg BID for 6 weeks. PT/OT. D/C planning. Present on Admission?: Yes Admission and Anticipated Discharge Date Admission Date: February 18, 2023 Subjective Doing well Review of Systems Review of Systems: All systems reviewed & are unremarkable except as noted in HPI & below Physical Exam Physical Exam: RLE: BCR < 2 sec. Sensation to light touch intact distally. Wiggling ankle and toes. Actively extending the knee. Calf soft and non-tender. Dressing is clean, dry, intact. Results & Data Vital Signs (Past 12 Hours) Vital Signs Temp Pulse Resp BP Pulse Ox O2 Del Method O2 Flow Rate 02/18/23 14:30 36.6 C 61 16 133/72 96 Room Air 02/18/23 13:31 36.3 C L 63 14 142/81 H 93 Room Air 02/18/23 12:59 36.4 C L 54 L 16 131/80 99 Room Air 02/18/23 12:30 36.4 C L 58 L 18 125/81 99 Room Air 02/18/23 11:50 36.2 C L 58 L 16 133/75 100 Room Air 2 02/18/23 11:40 55 L 16 129/71 100 Room Air 2 02/18/23 11:30 60 17 130/62 98 Room Air 2 02/18/23 11:20 36.0 C L 60 17 95/52 L 98 Nasal Cannula 2 02/18/23 06:06 36.6 C 63 18 140/83 98 Room Air Diagnostic Findings XR knee RT 1 or 2V routine HISTORY: 67 years-old Female Surgical Post Op right knee arthroplasty COMPARISON: 12/25/2022 TECHNIQUE: 2 views of the right knee FINDINGS: Total joint arthroplasty with patellar resurfacing. Anterior midline skin sussy are present along with expected postoperative soft tissue swelling with deep tissue air. No acute fracture, dislocation or unexpected opaque foreign body. IMPRESSION: Total joint arthroplasty with expected postoperative changes. ACT 112: Negative or not required by law. The above report was generated using voice recognition software. It may contain grammatical, syntax or spelling errors. Electronically signed by: Alexander Gonzalez M.D. 02/18/2023 12:06 PM
[2023-02-18] MEDS: Scopolamine CHECK PATCH PLACEMENT SCH (15:51)
[2023-02-18] MEDS: FERROUS GLUCONATE 324 MG TAB PO SCH (16:50)
[2023-02-18] MEDS: ceFAZolin 2000MG 2,000 MG/15 ML SYR IV SCH (16:50)
[2023-02-18] MEDS: DOCUSATE SODIUM 100 MG CAP PO SCH (20:25)
[2023-02-18] MEDS ORDERED: SENNA 8.6 MG TAB PO SCH (21:00)
[2023-02-18] MEDS: oxyCODONE HCL IR 5 MG TAB (IMMEDIATE RELEASE) PO PRN (22:41)
[2023-02-19] MEDS: Scopolamine CHECK PATCH PLACEMENT SCH ×2 (00:20→08:46)
[2023-02-19] MEDS: ceFAZolin 2000MG 2,000 MG/15 ML SYR IV SCH (01:10)
[2023-02-19] MEDS: oxyCODONE HCL IR 5 MG TAB (IMMEDIATE RELEASE) PO PRN ×3 (04:01→12:47)
[2023-02-19] MEDS ORDERED: LEVOTHYROXINE SODIUM 50 MCG TABLET PO SCH (06:30)
[2023-02-19 06:46] LABS: Hematocrit (blood only) 32.2 % (37.0-47.0); Hemoglobin 11.3 g/dl (12.0-16.0); Mean Corpuscular Hemoglobin 32.7 pg (25.0-34.0); Mean Corpuscular Hgb Conc 35.1 g/dL (32.0-36.0); Mean Corpuscular Volume 93.1 fL (80.0-100.0); Mean Platelet Volume 11.3 fL (9.4-12.4); Platelet Count 183 K/uL (130-400); RDW Coefficient of Variation 12.5 % (11.5-14.5); RDW Standard Deviation 42.5 fL (36.4-46.3); Red Blood Count 3.46 M/uL (4.20-5.40); White Blood Count 10.19 K/ul (4.8-10.8)
[2023-02-19 07:04] LABS: Calcium 8.9 mg/dl (8.6-10.3); Creatinine Clr Calc Pharmacy 99.4 ml/min; Est GFR (African American) 109.2 ml/min; Est GFR (Non-African American) 94.2 ml/min; Potassium 3.9 mmol/L (3.5-5.1)
[2023-02-19] MEDS: DOCUSATE SODIUM 100 MG CAP PO SCH (08:42)
[2023-02-19] MEDS: FERROUS GLUCONATE 324 MG TAB PO SCH (08:42)
[2023-02-19] MEDS ORDERED: ASPIRIN 81 MG ECTAB PO SCH (09:00)
[2023-02-19] MEDS ORDERED: TOCOPHERYL, DL-ALPHA 400 UNITS 180 MG CAP PO SCH (09:00)
[2023-02-19] MEDS ORDERED: PANTOprazole 40 MG TAB PO SCH (09:00)
[2023-02-19] MEDS ORDERED: [UNRECOGNIZED DRUG - OTHER] PO SCH (09:00)
[2023-02-19] MEDS ORDERED: PSYLLIUM or GUAR GUM FIBER POWDER PACKET PO SCH (09:00)
[2023-02-19] MEDS ORDERED: ASCORBIC ACID 500 MG TAB PO SCH (09:00)
[2023-02-19] MEDS ORDERED: OMEGA-3 (PURIFIED FISH OIL) 1 GM CAP PO SCH (09:00)
--- NOTE | 2023-02-19 13:23 | Orthopedic Progress Note ---
Date of Service February 19, 2023 Assessment & Plan (1) S/P total knee arthroplasty: Plan: PT/OT Ice with EZ wrap Teds and Aspirin for DVT prophylaxis Pain control with PO meds WBAT with walker D/C home today with in home PT for 2 weeks F/u at [facility] as previously scheduled With questions contact our clinic at [phone] Admission and Anticipated Discharge Date Admission Date: February 18, 2023 Subjective This 67 yo F is day 1 s/p Right total knee arthroplasty. She is doing very well. She is hopeful to be discharged home later today. She denies CP, SoB, nausea, vomiting, fever, chills, sweats, lethargy or numbness/tingling in her Right LE. Review of Systems Review of Systems: All systems reviewed & are unremarkable except as noted in Subjective Physical Exam Physical Exam: Right Knee: able to SLR. Quad strength is 3/5. Able to actively dorsi plantar flex foot. Knee ROM from 0 to 80. Dressing removed. No drainage from incision. Applied non adhesive dressing consisting of 4x4, ABD, Kerlix and ZANE. NV intact in Right LE. Results & Data Vital Signs (Past 12 Hours) Vital Signs Temp Pulse Resp BP BP Pulse Ox O2 Del Method 02/19/23 11:13 36.8 C 61 16 111/57 L 100 Room Air 02/19/23 06:06 95 Room Air 02/19/23 06:06 36.4 C L 62 16 108/70 93 Room Air 02/19/23 03:11 36.6 C 57 L 16 112/73 98 Room Air Diagnostic Findings Laboratory Results WBC 10.19 K/ul (4.8-10.8) 02/19/23 06:00 RBC 3.46 M/uL (4.20-5.40) L 02/19/23 06:00 Hgb 11.3 g/dl (12.0-16.0) L 02/19/23 06:00 Hct 32.2 % (37.0-47.0) L 02/19/23 06:00 MCV 93.1 fL (80.0-100.0) 02/19/23 06:00 MCH 32.7 pg (25.0-34.0) 02/19/23 06:00 MCHC 35.1 g/dL (32.0-36.0) 02/19/23 06:00 RDW Std Deviation 42.5 fL (36.4-46.3) 02/19/23 06:00 RDW Coeff of Michelle 12.5 % (11.5-14.5) 02/19/23 06:00 Plt Count 183 K/uL (130-400) 02/19/23 06:00 MPV 11.3 fL (9.4-12.4) 02/19/23 06:00 Sodium 135 mmol/L (136-145) L 02/19/23 06:00 Potassium 3.9 mmol/L (3.5-5.1) 02/19/23 06:00 Chloride 103 mmol/L (98-107) 02/19/23 06:00 Carbon Dioxide 25 mmol/L (21-32) 02/19/23 06:00 Anion Gap 7 (3-11) 02/19/23 06:00 BUN 13 mg/dl (6-23) 02/19/23 06:00 Creatinine 0.59 mg/dl (0.6-1.2) L 02/19/23 06:00 Est Cr Clr Drug Dosing 99.4 ml/min 02/19/23 06:00 Est GFR ( Amer) 109.2 ml/min 02/19/23 06:00 Est GFR (Non-Af Amer) 94.2 ml/min 02/19/23 06:00 BUN/Creatinine Ratio 22.0 (10-20) H 02/19/23 06:00 Glucose 136 mg/dl (70-99(Fasting)) H 02/19/23 06:00 Calcium 8.9 mg/dl (8.6-10.3) 02/19/23 06:00 Impressions Knee X-Ray 02/18/23 11:26 XR knee RT 1 or 2V routine HISTORY: 67 years-old Female Surgical Post Op right knee arthroplasty COMPARISON: 12/25/2022 TECHNIQUE: 2 views of the right knee FINDINGS: Total joint arthroplasty with patellar resurfacing. Anterior midline skin sussy are present along with expected postoperative soft tissue swelling with deep tissue air. No acute fracture, dislocation or unexpected opaque foreign body. IMPRESSION: Total joint arthroplasty with expected postoperative changes. ACT 112: Negative or not required by law. The above report was generated using voice recognition software. It may contain grammatical, syntax or spelling errors. Electronically signed by: Alexander Gonzalez M.D. 02/18/2023 12:06 PM
--- NOTE | 2023-02-20 15:02 | Discharge Summary ---
Date of Service February 20, 2023 Admission HPI Per Admitting Provider Kati is a 67-year-old female here today for preoperative evaluation prior to undergoing a right total knee arthroplasty with Dr. Rivera on 02/18/[address] [facility]. Patient has been dealing with knee pain for a while now. She says that she has good days and bad days. She was trying the hyaluronic acid injections and then they eventually stopped helping her. She says it does occasionally give out on her and that is what led her to want to get the surgery. We reviewed all the risks and benefits of the surgery and patient has elected to proceed with surgical and mention. She just saw her primary care provider Ekaterina staff this should, OMERO yesterday who cleared her for surgery. She ordered a BMP but the patient has not get it the patient has hypothyroidism that is managed by medication. She had an echo and a stress test done at [facility] 03/2022 and to her knowledge everything was normal with that. She endorses osteoarthritis, acid reflux, hiatal hernia. Patient has upper dentures. She is allergic to adhesive. She denies any history of heart attack, blood clots, stroke. She does not smoke. Pt was seen and examined bedside. POD #1 s/p right total knee arthroplasty. Pt was admitted last night for observation. No major events over night. Vitals are stable. Labs unremarkable. X-rays show normal post operative changed. Pt reports they are doing well and pain is controlled. They are tolerating PO intake and voiding adequate amounts. Working well with PT/OT. Pt denies F/C, N/V/D, SOB, CP. Pt deemed medically stable and ready for discharge. Admission Exam Per Admitting Provider General: Pt is well nourished, seated on the exam table AA&O, in NAD, calm and cooperative during exam HENT: Nontraumatic, no gross deformity, hearing and vision grossly in-tact, PERRL Heart: +S1, +S2, RRR, no murmurs appreciated Lungs: CTABL, no wheezing appreciated Focusing on the patient's bilateral lower extremities: 2+ DP pulse Sensation to light touch is intact Motor to the gastroc soleus, tibialis anterior, and EHL is 5/5. Able to perform straight leg raise. + Medial joint line tenderness. - Luke's Ligamentous examination exhibits: stable Carmen 0 mm anterior translation and firm endpoint Posterior drawer stable Varus stress at 0 and 30 stable Valgus stress at 0 and 30 stable - No Effusion Range of motion 0 to 120 b/l + Tenderness to palpation medial and lateral patellar facet Principal Diagnosis right knee osteoarthritis Discharge Exam General: Pt laying in hospital bed AA&O, in NAD, calm and cooperative during exam Lower Extremity: Dressing in tact and not saturated. Incisions clean, dry and with minimal drainage and no surrounding erythema, warmth or purulent drainage. Pt has full ROM of ankle and all 5 digits. Pt has 5/5 strength with resisted DF/PF. SLR in tact. Calf supple and non tender. NVI with sensation to light touch distally and good distal pulses present. Lower extremity noted to have good color and temperature with no signs of vascular or lymphatic insufficiency. Discharge Data Allergies Allergy/AdvReac Type Severity Reaction Status Date / Time adhesive Allergy Unknown Itching, Verified 02/18/23 06:11 redness, swelling clarithromycin Allergy Unknown Hives Verified 02/18/23 06:11 latex Allergy Unknown Rash Verified 02/18/23 06:11 ("with latex gloves only") penciclovir Allergy Unknown Cold sores Verified 02/18/23 06:11 venlafaxine Allergy Unknown Unknown Verified 02/18/23 06:11 bupropion AdvReac Unknown Anxiety Verified 02/18/23 06:11 montelukast AdvReac Unknown Irritabilit Verified 02/18/23 06:11 y Procedures Performed Operation Date: 02/18/23 08:05 Actual Procedures p Right Total Knee Arthroplasty(Right) - Edgar Rivera MD Ordered Studies 02/18/23 05:00 [facility] Rout[facility] Hospital Course (1) S/P total knee arthroplasty: POD1 s/p total knee arthroplasty WBAT with walker PT/OT Diet - regular Frequently ice and elevate with blankets stacked under ankle DVT prophylaxis: ASA 81mg BID x 6 weeks, TEDS x 3 weeks, foot pumps while in hospital Pain control: Tylenol 1000mg q 8hrs, oxycodone 5-10mg q4-6 hrs for moderate pain, Dilaudid 0.5mg IV for severe/breakthrough pain Vitamin C and Iron supplementation BID x 2 weeks Dressing: will change dressing to Mepilex dressing that patient can leave in- tact until f/u Discharge home with home health x 2 weeks Follow up as scheduled with [facility] in 2 weeks Total Time Total Time Spent Total Time Spent (In Minutes): 15 minutes spent doing chart review and notes Discharge Plan Discharge Items Patient Disposition: Home - Home Health Services Reason For Visit: POST OP RIGHT TOTAL KNEE Discharge Diagnosis: same Activity: Per Instructions section Lifting: None Bathing: Keep incision dry Bathing Comment: may shower tomorrow Sexual Activity: Wait until after follow-up appointment Exercise/Sports: Wait until after follow-up appointment Driving/Machine Use: No driving until cleared by reconciliation specialist Weightbearing: Right weightbearing Weightbearing Comment: as tolerated with walker assistance Non-emergency contact: Surgeon Call non-emergency contact if: you have any medication questions, your pain is not controlled, your temperature is above 101.5, your wound has increased redness, your wound has increased drainage and your wound pain has increased Follow-up/Referrals: Rizwan Suarez MD [Primary Care Provider] - Diet: Regular Addtl Attending Provider Instructions: ORTHOPEDIC DISCHARGE INSTRUCTIONS -Weight bearing as tolerated with walker to assist in ambulation -Home health/PT x 2 weeks. You will receive home exercises to do on your own for the first two weeks from home PT. Please do these exercises 3 times a day. -Frequently ice, at least 20 minutes 5 times a day. -Elevate operative leg above your heart with pillows/blankets underneath your ankle, never under your knee. This helps to keep the knee in extension and prevent a flexion contracture. -You may shower on Post op Day 3. Leave Mepilex dressing in tact until follow up appt in 2 weeks. Your dressing is water-resistant, meaning you can shower with it on as long as it is in-tact. Letting some running water run over top of it from the shower is okay. You cannot submerge your incision in water. No baths, hot tubs or swimming pools. Keep dressing clean and dry. If your dressing starts to peel off or gets moisture under it after 7 days, home health nurse may reinforce as needed. -DVT prophylaxis: Aspirin 81mg twice a day for 6 weeks, [place] compression s tockings for 3 weeks -While taking Aspirin, if you start to get upset stomach, we recommend taking over the counter Pepcid, 20mg twice a day as long as you are taking the Aspirin -Pain control: oxycodone 5mg every 4-6 hours as needed, Tylenol 500-1000mg every 8 hours -To promote healing, please take 500mg Vitamin C twice a day with meals x 2 weeks and Iron 325 mg twice a day with meals x 2 weeks -While on narcotic pain medication and iron supplement, we recommend you take a stool softener to prevent constipation -Follow up as scheduled in 2 weeks with [facility] for post op evaluation and Zip-line removal. Please call our office sooner @ [phone] if you have any questions or concerns Pending Studies at Discharge: No Stand-Alone Forms: My [facility], Pain - Opioid Pain Management Medications and DC Order Prescriptions: New ferrous gluconate 324 mg (38 mg iron) Tablet 324 mg PO BIDM 14 Days Qty: 28 0RF aspirin 81 mg Tablet,Delayed Release (Dr/Ec) 81 mg PO BID 42 Days Qty: 84 0RF ascorbic acid (vitamin C) [Vitamin C] 500 mg Tablet 1,000 mg PO QAM 14 Days Qty: 28 0RF oxycodone 5 mg Tablet 5 - 10 mg PO Q4H PRN (Reason: post op pain control) Qty: 28 0RF Continued vitamin E 200 unit Capsule 400 units PO QAM fluticasone propionate 50 mcg/actuation spray,suspension 2 spry intranasal DAILY PRN (Reason: Allergy Symptoms) omega 5-vof-xoz-fish oil [Fish Oil] 1,000 mg (120 mg-180 mg) Capsule 1 cap PO QAM Patient Comments: 1200 MG levothyroxine 50 mcg tablet 50 mcg PO QAM omeprazole 20 mg Capsule,Delayed Release(Dr/Ec) 20 mg PO QAM Headache And Allergy Relief 1 dose PO UD PRN (Reason: ALLERGIES) Patient Comments: FLONASE HEADACHE AND ALLERGY RELIEF Vitamin K2 And Vitamin D3 1 dose PO QAM Patient Comments: 90 MG K2 AND 125 MG VITAMIN D 3 coenzyme Q10 [CoQ-10] 100 mg Capsule 100 mg PO QAM ascorbic acid (vitamin C) [Vitamin C] 1,000 mg Tablet 1 g PO QAM Metamucil 3.4 gram/5.4 gram Powder 2 tbsp PO QAM Rx Instructions: mix into at least 8 oz of water or juice before administering Krames/Other Patient Handouts: DVT Post Op Prevention Admission Data Admit Date/Time: 02/18/23 11:26 Attending Provider: Edgar Rivera Admit Provider: Edgar Rivera Primary Care Provider: Rizwan Suarez Other Providers: [facility],Home Health Other Interventions: Discharge Summary Assessment (RN) Last Done: 02/19/23 14:08
== END 2023-02-19 14:35 | disposition home health service (06) ==
LOC: ASU 05:49 → 3E 05:49